=== PATIENT | female | born 1990 | race Two or more races ===

== ENCOUNTER → 2025-01-16 | Emergency (ER) | payer BC ==
[~2025-01-16] VITALS: Ht 154.9 cm; Wt 53.5 kg
[~2025-01-16] MED LIST: KETOROLAC TROMETHAMINE 60 MG VIAL IM STA
== END | disposition home or self-care (01) ==
LOC: ER 02:17
DX: S99.821A Other specified injuries of right foot, initial encounter (principal); W22.8XXA Striking against or struck by other objects, initial encounter; Y93.89 Activity, other specified; Y92.89 Other specified places as the place of occurrence of the external cause